=== PATIENT | male | born 1935 | race Caucasian/White ===

== ENCOUNTER 2020-03-24 10:43 | Emergency (ER) | payer MEDICARE, BC ==
--- NOTE | 2020-03-24 11:11 | EDM.PDOC ---
ED HPI GENERAL MEDICAL PROBLEM - General Chief Complaint: General Stated Complaint: BACK PAIN Time Seen by Provider: 03/24/20 11:00 Source of Information: Reports: Patient History Limitations: Reports: No Limitations - History of Present Illness INITIAL COMMENTS - FREE TEXT/NARRATIVE: Oumar arrives to the emergency room via EMS for acute low back pain. He states he got up this morning and developed right lower back pain that radiates down his right leg. He has history of recurrent back pain and muscle spasm in the past. He did note he did fall on the ground on his right side a few days ago. He denies any injury from that. Patient did take one Flexeril as which he had on hand which helped his muscle spasm. Currently arrives with pain level 2/10, radiating down side of his right leg. Patient denies any trouble with bowel bladder functions, no inner thigh paresthesia, no lower leg weakness. Lower Back Pain Score (Numeric/FACES): 2 - Related Data Allergies Allergy/AdvReac Type Severity Reaction Status Date / Time No Known Drug Allergies Allergy Cannot Verified 03/24/20 11:00 Remember Home Meds: Home Meds Cyclobenzaprine [Flexeril] 10 mg PO TID PRN 03/24/20 [History] Metoprolol Succinate [Toprol XL 50mg] 50 mg PO DAILY 03/24/20 [History] Mirtazapine 30 mg PO DAILY 03/24/20 [History] Sertraline [Zoloft] 100 mg PO DAILY 03/24/20 [History] atorvaSTATin [Lipitor] 10 mg PO DAILY 03/24/20 [History] hydroCHLOROthiazide [Hydrochlorothiazide] 12.5 mg PO DAILY 03/24/20 [History] metFORMIN [Glucophage] 1,000 mg PO BIDMEALS 03/24/20 [History] ED ROS GENERAL - Review of Systems Review Of Systems: Comprehensive ROS is negative, except as noted in HPI. 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 No: Paraspinal Tenderness, Vertebral Tenderness Extremities: Normal Inspection, Normal Range of Motion, Non-Tender, No Pedal Edema Neurological: Alert, Oriented Psychiatric: Normal Affect, Normal Mood Skin Exam: Warm, Dry, Intact, No Rash Course - Vital Signs Last Recorded V/S: Last Vital Signs Temp 97.1 F 03/24/20 10:51 Pulse 65 03/24/20 11:15 Resp 22 H 03/24/20 11:15 BP 122/80 03/24/20 11:15 Pulse Ox 92 L 03/24/20 11:15 - Orders/Labs/Meds Meds: Medications Discontinued Medications Generic Name Dose Route Start Last Admin Trade Name Bertha PRN Reason Stop Dose Admin Ketorolac Tromethamine 30 mg 03/24/20 11:16 03/24/20 11:22 Toradol IM 03/24/20 11:17 30 mg ONETIME ONE Administration - Re-Assessments/Exams Free Text/Narrative Re-Assessment/Exam: 03/24/20 11:24 No red flags with this back pain. No signs of cauda equina syndrome. Patient does have Flexeril at home and will take that as needed. He does have some bigg odic forgetfulness therefore patient was reminded to write down what he takes and what time he takes medicine order to keep track. He does live at home however he has good family support nearby. 03/24/20 11:26 Departure - Departure Time of Disposition: 11:17 Disposition: Home, Self-Care 01 Condition: Good Clinical Impression: Muscle spasm Low back pain Qualifiers: Chronicity: acute Back pain laterality: right Sciatica presence: with sciatica Sciatica laterality: sciatica of right side Qualified Code(s): M54.41 - Lumbago with sciatica, right side - Discharge Information *PRESCRIPTION DRUG MONITORING PROGRAM REVIEWED*: No *COPY OF PRESCRIPTION DRUG MONITORING REPORT IN PATIENT LEONID: No Instructions: Muscle Cramps and Spasms, Acute Back Pain, Adult Referrals: To [facility] [Primary Care Provider] - Forms: ED Department Discharge Sepsis Event Note (ED) - Evaluation Sepsis Screening Result: No Definite Risk - Focused Exam Vital Signs: Vital Signs Temp Pulse Resp BP Pulse Ox 03/24/20 11:15 65 22 H 122/80 92 L 03/24/20 10:51 97.1 F 71 16 138/91 H 94 L
[2020-03-24] MEDS ORDERED: Ketorolac 30 MG/ML SDV IM ONE (11:16)
== END 2020-03-24 11:45 | disposition home or self-care (01) ==
LOC: KA.ED 10:43
DX: M54.41 Lumbago with sciatica, right side (principal); Z79.899 Other long term (current) drug therapy
CPT/HCPCS: 96372; 99283; J1885